=== PATIENT | female | born 1955 | race Caucasian/White ===

== ENCOUNTER 2020-07-18 09:48 | Inpatient (IN) ==
[2020-07-18] MEDS ORDERED: 0.9 % Sodium Chloride 1,000 ML IVC ONE (10:28)
[2020-07-18 11:08] LABS: Basophils % 0.2 %; Eosinophils # 0.4 K/mcL (0.0-0.6); Eosinophils % 4.2 %; Hematocrit 31.4 % (35.3-44.9); Hemoglobin 10.2 g/dL (11.5-15.4); Immature Granulocytes % 0.7 % (0-4); Lymphocytes # 1.4 K/mcL (0.6-4.6); Lymphocytes % 16.5 %; Mean Corpuscular HGB Conc 32.5 g/dL (31.6-35.5); Mean Corpuscular Hemoglobin 27.3 pg (28.0-33.3); Mean Corpuscular Volume 84.2 fL (83.0-100.0); Monocytes # 0.8 K/mcL (0.0-1.3); Monocytes % 9.3 %; Neutrophils # 5.9 K/mcL (1.6-8.9); Platelet Count 203 K/mcL (140-400); Red Blood Count 3.73 M/mcL (3.82-4.97); Red Cell Distribution Width 12.6 % (11.5-14.5); Segmented Neutrophils % 69.1 %; White Blood Count 8.6 K/mcL (4.3-11.1)
[2020-07-18 11:27] LABS: Alanine Aminotransferase 10 Units/L (7-52); Albumin 3.7 g/dL (3.5-5.7); Albumin/Globulin Ratio 0.9 (1.1-2.2); Alkaline Phosphatase 62 Units/L (34-104); Aspartate Amino Transferase 11 Units/L (13-39); BUN/Creatinine Ratio 8 (6-26); Bilirubin,Direct 0.1 mg/dL (0.0-0.2); Bilirubin,Indirect 0.5 mg/dL (0.0-1.0); Bilirubin,Total 0.6 mg/dL (0.3-1.0); Blood Urea Nitrogen 77 mg/dL (8-23); Calcium 9.1 mg/dL (8.6-10.3); Carbon Dioxide 17 mEq/L (23-29); Chloride 103 mEq/L (98-107); Globulin 3.9 g/dL (2.4-3.5); Glucose 90 mg/dL (70-105); Lipase 76 Units/L (11-82); Osmolality,Calculated 303 (280-300); Potassium 4.5 mEq/L (3.5-5.1); Sodium 135 mEq/L (136-145); Total Protein 7.6 g/dL (6.4-8.9); Troponin I < 0.03 ng/mL (< 0.04); eGFR For African Americans 5 (> 60); eGFR For Non-African Americans 4 (> 60)
[2020-07-18 13:51] LABS: Amorphous Sediment,Urine Few per hpf (None-Few); Bacteria,Urine Few per hpf (None-Few); Bilirubin,Urine Negative (Negative); Blood,Urine Large (Negative); Clarity,Urine Turbid (Clear); Color,Urine Colorless (Yellow); Glucose,Urine (UA) Normal (Normal); Ketones,Urine Negative (Negative); Leukocyte Esterase,Urine Negative (Negative); Mucus,Urine Few per lpf (None-Few); Nitrite,Urine Negative (Negative); Protein,Urine 200 mg/dL (Neg-Trace); RBC,Urine TNTC per hpf (0-3); Specific Gravity,Urine 1.009 (1.010-1.025); Squamous Epithelial Cell,Urine Few per hpf (None-Few); Urobilinogen,Urine Normal (Normal)
[2020-07-18 14:32] LABS: Adenovirus Not Detected (Not Detect); Bordetella Pertussis Not Detected (Not Detect); Chlamydophila pneumoniae Not Detected (Not Detect); Coronavirus 229E Not Detected (Not Detect); Coronavirus HKU1 Not Detected (Not Detect); Coronavirus NL63 Not Detected (Not Detect); Coronavirus OC43 Not Detected (Not Detect); Human Metapneumovirus Not Detected (Not Detect); Human Rhinovirus/Enterovirus Not Detected (Not Detect); Influenza A Subtype 2009 H1 Not Detected (Not Detect); Influenza B Not Detected (Not Detect); Mycoplasma pneumoniae Not Detected (Not Detect); Parainfluenza Virus 1 Not Detected (Not Detect); Parainfluenza Virus 2 Not Detected (Not Detect); Parainfluenza Virus 3 Not Detected (Not Detect); Parainfluenza Virus 4 Not Detected (Not Detect); Respiratory Syncytial Virus Not Detected (Not Detect); SARS-CoV-2 Not Detected (Not Detect)
[2020-07-18] MEDS ORDERED: Naloxone 0.4 MG/ML INJ IVP PRN (15:09)
[2020-07-18] MEDS ORDERED: Ondansetron 4 MG/2 ML VIAL IVP PRN (15:09)
[2020-07-18] MEDS: carvediloL 25 MG TABLET PO SCH (18:29)
[2020-07-18] MEDS: 0.9 % Sodium Chloride 1,000 ML IVC SCH (18:30)
[2020-07-18 22:59] LABS: Adenovirus F 40/41 PCR Not detected (Not detect); Astrovirus PCR Not detected (Not detect); C.difficile Toxin A/B Gene PCR Not detected (Not detect); Campylobacter by PCR Not detected (Not detect); Cryptosporidium by PCR Not detected (Not detect); Cyclospora cayetanensis PCR Not detected (Not detect); E. coli O157 by PCR Not detected (Not detect); Entamoeba histolytica PCR Not detected (Not detect); Enteroaggregative E.coli(EAEC) Not detected (Not detect); Enteropathogenic E.coli(EPEC) Not detected (Not detect); Enterotoxigenic E.coli (ETEC) Not detected (Not detect); Giardia lamblia PCR Not detected (Not detect); Norovirus GI/GII PCR Not detected (Not detect); Plesiomonas shigelloides PCR Not detected (Not detect); Rotavirus A PCR Not detected (Not detect); Salmonella PCR Not detected (Not detect); Sapovirus PCR Not detected (Not detect); Shig/EnteroinvasiveE coli EIEC Not detected (Not detect); Shigalike tox-prod E coli STEC Not detected (Not detect); Vibrio PCR Not detected (Not detect); Vibrio cholerae PCR Not detected (Not detect); Yersinia enterocolitica PCR Not detected (Not detect)
[2020-07-19 01:00] LABS: Protein/Creatinine Ratio,Urine 2.19 mg/mg (0.00-0.20)
[2020-07-19 03:10] LABS: Basophils % 0.2 %; Eosinophils # 0.4 K/mcL (0.0-0.6); Eosinophils % 5.4 %; Hematocrit 26.3 % (35.3-44.9); Immature Granulocytes % 0.6 % (0-4); Lymphocytes # 1.3 K/mcL (0.6-4.6); Lymphocytes % 15.8 %; Mean Corpuscular HGB Conc 31.9 g/dL (31.6-35.5); Mean Corpuscular Hemoglobin 27.5 pg (28.0-33.3); Mean Corpuscular Volume 86.2 fL (83.0-100.0); Mean Platelet Volume 9.5 fL (9.4-12.4); Monocytes # 0.9 K/mcL (0.0-1.3); Monocytes % 10.6 %; Neutrophils # 5.5 K/mcL (1.6-8.9); Platelet Count 189 K/mcL (140-400); Red Blood Count 3.05 M/mcL (3.82-4.97); Red Cell Distribution Width 12.8 % (11.5-14.5); Segmented Neutrophils % 67.4 %; White Blood Count 8.2 K/mcL (4.3-11.1)
[2020-07-19 03:11] LABS: Hemoglobin 8.4 g/dL (11.5-15.4)
[2020-07-19 03:29] LABS: Calcium 8.1 mg/dL (8.6-10.3); Magnesium 1.9 mg/dL (1.6-2.6); Potassium 5.1 mEq/L (3.5-5.1)
[2020-07-19] MEDS: 0.9 % Sodium Chloride 1,000 ML IVC SCH (04:15)
[2020-07-19 08:19] LABS: Hematocrit 27.2 % (35.3-44.9); Hemoglobin 8.6 g/dL (11.5-15.4)
[2020-07-19] MEDS: Cholecalciferol (D-3) 1,000 UNIT (25MCG) TABLET PO SCH (09:15)
[2020-07-19] MEDS: carvediloL 25 MG TABLET PO SCH ×2 (09:15→16:05)
[2020-07-19] MEDS: amLODIPine 5 MG TABLET PO SCH (09:15)
[2020-07-19] MEDS: Sodium Bicarbonate 75 MEQ in 0.45 % Sodium Chloride 1,000 ML IVC SCH (11:38)
[2020-07-19 12:19] LABS: Complement C3 155 mg/dL (87-200)
[2020-07-19] MEDS: Ondansetron 4 MG/2 ML VIAL IVP PRN (12:20)
[2020-07-20 01:48] LABS: Eosinophils % 5.9 %; Hematocrit 23.9 % (35.3-44.9); Hemoglobin 7.5 g/dL (11.5-15.4); Immature Granulocytes % 0.7 % (0-4); Lymphocytes % 17.8 %; Mean Corpuscular HGB Conc 31.4 g/dL (31.6-35.5); Mean Corpuscular Hemoglobin 26.9 pg (28.0-33.3); Mean Corpuscular Volume 85.7 fL (83.0-100.0); Mean Platelet Volume 9.9 fL (9.4-12.4); Monocytes % 9.6 %; Platelet Count 202 K/mcL (140-400); Red Blood Count 2.79 M/mcL (3.82-4.97); Red Cell Distribution Width 12.6 % (11.5-14.5); Segmented Neutrophils % 65.8 %; White Blood Count 8.8 K/mcL (4.3-11.1)
[2020-07-20 01:49] LABS: Basophils % 0.2 %; Eosinophils # 0.5 K/mcL (0.0-0.6); Lymphocytes # 1.6 K/mcL (0.6-4.6); Monocytes # 0.8 K/mcL (0.0-1.3); Neutrophils # 5.8 K/mcL (1.6-8.9)
[2020-07-20 02:15] LABS: Calcium 7.8 mg/dL (8.6-10.3); Magnesium 1.8 mg/dL (1.6-2.6); Phosphorous 5.2 mg/dL (2.7-4.5); Potassium 5.3 mEq/L (3.5-5.1)
[2020-07-20 03:06] LABS: Hepatitis B Surface Antibody < 3.10 mIU/mL
[2020-07-20 03:17] LABS: Hepatitis B Surface Antigen Nonreactive (Nonreactive)
[2020-07-20 03:45] LABS: Hepatitis B Core IgM Nonreactive (Nonreactive)
[2020-07-20] MEDS: Sodium Bicarbonate 75 MEQ in 0.45 % Sodium Chloride 1,000 ML IVC SCH (05:25)
[2020-07-20] MEDS: amLODIPine 5 MG TABLET PO SCH (07:56)
[2020-07-20] MEDS: Cholecalciferol (D-3) 1,000 UNIT (25MCG) TABLET PO SCH (07:56)
[2020-07-20] MEDS: carvediloL 25 MG TABLET PO SCH ×2 (07:56→16:31)
[2020-07-20] MEDS ORDERED: Ferumoxytol 510 MG in 0.9 % Sodium Chloride 100 ML IVPB ONE (11:18)
[2020-07-20] MEDS ORDERED: 0.9 % Sodium Chloride 1,000 ML IVC SCH (11:30)
[2020-07-20 12:57] LABS: Hematocrit 24.5 % (35.3-44.9)
[2020-07-20 13:17] LABS: Calcium 7.8 mg/dL (8.6-10.3); Potassium 4.8 mEq/L (3.5-5.1)
[2020-07-20] MEDS ORDERED: SODIUM CHLORIDE/NAHCO3/KCL/PEG 4,000 ML SOLN.RECON PO ONE (17:00)
[2020-07-21 06:34] LABS: Basophils % 0.3 %; Eosinophils # 0.4 K/mcL (0.0-0.6); Eosinophils % 5.3 %; Hematocrit 22.5 % (35.3-44.9); Hemoglobin 7.3 g/dL (11.5-15.4); Immature Granulocytes % 1.2 % (0-4); Lymphocytes # 1.4 K/mcL (0.6-4.6); Lymphocytes % 18.4 %; Mean Corpuscular HGB Conc 32.4 g/dL (31.6-35.5); Mean Corpuscular Hemoglobin 27.2 pg (28.0-33.3); Monocytes # 0.7 K/mcL (0.0-1.3); Monocytes % 9.9 %; Neutrophils # 4.9 K/mcL (1.6-8.9); Platelet Count 221 K/mcL (140-400); Red Blood Count 2.68 M/mcL (3.82-4.97); Red Cell Distribution Width 12.6 % (11.5-14.5); Segmented Neutrophils % 64.9 %; White Blood Count 7.5 K/mcL (4.3-11.1)
[2020-07-21 06:51] LABS: Phosphorous 5.9 mg/dL (2.7-4.5)
[2020-07-21 07:00] LABS: Calcium 7.6 mg/dL (8.6-10.3)
[2020-07-21] MEDS ORDERED: 0.9 % Sodium Chloride 250 ML IVC PRN (07:04)
[2020-07-21] MEDS ORDERED: 0.9 % Sodium Chloride 1,000 ML PRIME SCH (07:15)
[2020-07-21] MEDS ORDERED: Lidocaine/EPI 1:100k 1% 50 ML VIAL ONE (08:17)
[2020-07-21] MEDS ORDERED: Heparin 1,000 UNITS/500 mL 500 ML ONE (08:17)
[2020-07-21] MEDS: Ondansetron 4 MG/2 ML VIAL IVP PRN (08:20)
[2020-07-21] MEDS: Cholecalciferol (D-3) 1,000 UNIT (25MCG) TABLET PO SCH ×2 (08:21→12:08)
[2020-07-21 08:26] LABS: INR 1.1
[2020-07-21] MEDS ORDERED: *HR* Heparin 5,000 UNIT/ML VIAL ONE (09:01)
[2020-07-21] MEDS ORDERED: *HR* Heparin 10,000 UNIT/10 ML VIAL IV PRN (10:53)
[2020-07-21] MEDS: amLODIPine 5 MG TABLET PO SCH (12:08)
[2020-07-21] MEDS: carvediloL 25 MG TABLET PO SCH ×2 (12:08→16:50)
[2020-07-21] MEDS ORDERED: Lidocaine -MPF 2% 2 ML VIAL ONE (13:03)
[2020-07-22 03:37] LABS: Basophils % 0.3 %; Eosinophils # 0.3 K/mcL (0.0-0.6); Eosinophils % 4.1 %; Hematocrit 21.7 % (35.3-44.9); Hemoglobin 7.2 g/dL (11.5-15.4); Lymphocytes # 1.2 K/mcL (0.6-4.6); Lymphocytes % 15.6 %; Mean Corpuscular HGB Conc 33.2 g/dL (31.6-35.5); Mean Corpuscular Hemoglobin 27.9 pg (28.0-33.3); Mean Corpuscular Volume 84.1 fL (83.0-100.0); Mean Platelet Volume 9.3 fL (9.4-12.4); Monocytes # 0.8 K/mcL (0.0-1.3); Monocytes % 9.7 %; Neutrophils # 5.5 K/mcL (1.6-8.9); Platelet Count 270 K/mcL (140-400); Red Blood Count 2.58 M/mcL (3.82-4.97); Red Cell Distribution Width 12.6 % (11.5-14.5); Segmented Neutrophils % 69.3 %; White Blood Count 7.9 K/mcL (4.3-11.1)
[2020-07-22 04:00] LABS: Calcium 7.6 mg/dL (8.6-10.3); Potassium 4.5 mEq/L (3.5-5.1)
[2020-07-22] MEDS ORDERED: 0.9 % Sodium Chloride 250 ML IVC PRN (07:10)
[2020-07-22] MEDS: carvediloL 25 MG TABLET PO SCH ×2 (07:50→16:21)
[2020-07-22] MEDS: Cholecalciferol (D-3) 1,000 UNIT (25MCG) TABLET PO SCH (07:50)
[2020-07-22] MEDS ORDERED: *HR* Heparin 10,000 UNIT/10 ML VIAL IV PRN (09:36)
[2020-07-22] MEDS: amLODIPine 5 MG TABLET PO SCH (11:37)
[2020-07-22 13:34] LABS: ANA IgG by ELISA NONE DETECTED (None Detected)
[2020-07-22 13:41] LABS: Serine Protease-3 Antibody 149 AU/mL (0-19)
[2020-07-22 21:54] LABS: Beta Globulin (PEP) 0.79 g/dL (0.48-1.10)
[2020-07-23 04:12] LABS: Basophils % 0.2 %; Eosinophils # 0.3 K/mcL (0.0-0.6); Eosinophils % 3.2 %; Hematocrit 20.5 % (35.3-44.9); Hemoglobin 6.7 g/dL (11.5-15.4); Immature Granulocytes % 1.5 % (0-4); Lymphocytes # 1.2 K/mcL (0.6-4.6); Lymphocytes % 12.5 %; Mean Corpuscular HGB Conc 32.7 g/dL (31.6-35.5); Mean Corpuscular Hemoglobin 27.7 pg (28.0-33.3); Mean Corpuscular Volume 84.7 fL (83.0-100.0); Mean Platelet Volume 9.4 fL (9.4-12.4); Monocytes # 0.9 K/mcL (0.0-1.3); Monocytes % 9.4 %; Neutrophils # 6.8 K/mcL (1.6-8.9); Platelet Count 297 K/mcL (140-400); Red Blood Count 2.42 M/mcL (3.82-4.97); Red Cell Distribution Width 12.5 % (11.5-14.5); Segmented Neutrophils % 73.2 %; White Blood Count 9.3 K/mcL (4.3-11.1)
[2020-07-23 04:31] LABS: Calcium 7.4 mg/dL (8.6-10.3); Potassium 3.7 mEq/L (3.5-5.1)
[2020-07-23] MEDS ORDERED: 0.9 % Sodium Chloride 250 ML IVC SCH (06:00)
[2020-07-23] MEDS ORDERED: 0.9 % Sodium Chloride 250 ML IVC PRN (07:12)
[2020-07-23] MEDS: carvediloL 25 MG TABLET PO SCH ×2 (07:42→18:03)
[2020-07-23] MEDS: Cholecalciferol (D-3) 1,000 UNIT (25MCG) TABLET PO SCH (07:42)
[2020-07-23] MEDS: Piperacillin/Tazobactam 3.375 GM in 0.9 % Sodium Chloride Mini Bag 100 ML IVPB SCH ×2 (08:15→18:05)
[2020-07-23 08:45] LABS: INR 1.2; Prothrombin Time 13.7 Seconds (9.4-12.1)
[2020-07-23] MEDS ORDERED: Ondansetron 4 MG/2 ML VIAL IVP PRN (08:52)
[2020-07-23] MEDS ORDERED: *HR* FentaNYL (PF) 100 MCG/2 ML VIAL IVP PRN (08:52)
[2020-07-23] MEDS ORDERED: Lidocaine -MPF 4% 5 ML AMPUL ONE ×2 (10:40)
[2020-07-23] MEDS ORDERED: *HR* Succinylcholine 200 MG/10 ML VIAL IVP ONE (10:40)
[2020-07-23] MEDS ORDERED: Ondansetron 4 MG/2 ML VIAL ONE (10:40)
[2020-07-23] MEDS ORDERED: Dexamethasone 4 MG/ML VIAL ONE (10:40)
[2020-07-23] MEDS ORDERED: Lidocaine -MPF 2% 2 ML VIAL ONE (10:40)
[2020-07-23] MEDS ORDERED: *HR* FentaNYL (PF) 100 MCG/2 ML VIAL ONE (10:41)
[2020-07-23] MEDS ORDERED: *HR* Propofol 200 MG/20 ML VIAL IVP ONE (10:42)
[2020-07-23] MEDS: 0.9 % Sodium Chloride 500 ML IVC SCH (11:30)
[2020-07-23 12:15] LABS: IFE Reflexed NOT DONE
[2020-07-23] MEDS ORDERED: *HR* Heparin 10,000 UNIT/10 ML VIAL IV PRN (12:23)
[2020-07-23] MEDS: amLODIPine 5 MG TABLET PO SCH (12:38)
[2020-07-23] MEDS ORDERED: Artificial Tears SOLN 15 ML BOTTLE BOTH EYES PRN (13:10)
[2020-07-23] MEDS: FentaNYL (PF) 1,000 MCG/100 ML IV.SOLN IVC SCH (14:25)
[2020-07-23 15:56] LABS: Hematocrit 26.4 % (35.3-44.9)
[2020-07-23 16:10] LABS: Hemoglobin 8.9 g/dL (11.5-15.4)
[2020-07-23 16:30] LABS: Hepatitis B Surface Antigen Nonreactive (Nonreactive)
[2020-07-23] MEDS: Artificial Tears SOLN 15 ML BOTTLE BOTH EYES SCH ×3 (16:33→23:21)
[2020-07-23] MEDS: Pantoprazole 40 MG VIAL IVP SCH (16:33)
[2020-07-23 16:58] LABS: Hepatitis C Virus Antibody Nonreactive (Nonreactive)
[2020-07-23 16:59] LABS: Hepatitis B Core IgM Nonreactive (Nonreactive)
[2020-07-23 17:01] LABS: Hepatitis A Antibody IgM Nonreactive (Nonreactive)
[2020-07-23 17:23] LABS: Appearance of Body Fluid Hazy (Clear)
[2020-07-23 17:24] LABS: Volume of Body Fluid 27 mL
[2020-07-23] MEDS: Chlorhexidine Rinse 15 ML MOUTHWASH MM SCH (19:50)
[2020-07-24] MEDS: 0.9 % Sodium Chloride 500 ML IVC SCH (04:36)
[2020-07-24] MEDS: Artificial Tears SOLN 15 ML BOTTLE BOTH EYES SCH ×2 (04:36→09:41)
[2020-07-24 04:43] LABS: Basophils % 0.1 %; Hematocrit 24.8 % (35.3-44.9); Hemoglobin 8.4 g/dL (11.5-15.4); Immature Granulocytes % 1.4 % (0-4); Lymphocytes # 0.9 K/mcL (0.6-4.6); Lymphocytes % 8.5 %; Mean Corpuscular HGB Conc 33.9 g/dL (31.6-35.5); Mean Corpuscular Hemoglobin 28.5 pg (28.0-33.3); Mean Corpuscular Volume 84.1 fL (83.0-100.0); Mean Platelet Volume 9.2 fL (9.4-12.4); Monocytes # 0.3 K/mcL (0.0-1.3); Monocytes % 2.3 %; Neutrophils # 9.6 K/mcL (1.6-8.9); Platelet Count 295 K/mcL (140-400); Red Blood Count 2.95 M/mcL (3.82-4.97); Segmented Neutrophils % 87.7 %
[2020-07-24 04:53] LABS: INR 1.3; Prothrombin Time 15.1 Seconds (9.4-12.1)
[2020-07-24 04:54] LABS: ABG Base Excess 4 mEq/L (-2 to 3); ABG HCO3 28 mEq/L (21-27); ABG Oxygen Saturation 96 % (95-98); ABG PCO2 40 mmHg (35-45); ABG PH 7.45 pH Units (7.32-7.45); ABG PO2 77 mmHg (85-104); ABG TCO2 29 mEq/L (20-26); Blood Gas VT 400 cc
[2020-07-24 04:56] LABS: Albumin 2.7 g/dL (3.5-5.7); Bilirubin,Total 0.8 mg/dL (0.3-1.0); Calcium 7.5 mg/dL (8.6-10.3); Globulin 2.8 g/dL (2.4-3.5); Potassium 4.4 mEq/L (3.5-5.1); Total Protein 5.5 g/dL (6.4-8.9)
[2020-07-24] MEDS: Piperacillin/Tazobactam 3.375 GM in 0.9 % Sodium Chloride Mini Bag 100 ML IVPB SCH (05:01)
[2020-07-24] MEDS ORDERED: Lidocaine -MPF 2% 5 ML VIAL ONE (08:25)
[2020-07-24] MEDS ORDERED: *HR* Midazolam HCl 2 MG/2 ML VIAL IVP ONE (08:37)
[2020-07-24] MEDS ORDERED: Furosemide 80 MG in 0.9 % Sodium Chloride 50 ML IVPB ONE (09:30)
[2020-07-24 09:39] VITALS: BP 117/67
[2020-07-24] MEDS: carvediloL 25 MG TABLET PO SCH (09:41)
[2020-07-24] MEDS: *HR* Midazolam HCl 5 MG/5 ML VIAL IVP ONE ×2 (09:42)
[2020-07-24] MEDS: Chlorhexidine Rinse 15 ML MOUTHWASH MM SCH (09:44)
[2020-07-24] MEDS: Pantoprazole 40 MG VIAL IVP SCH (09:44)
[2020-07-24] MEDS: amLODIPine 5 MG TABLET PO SCH (09:44)
[2020-07-24] MEDS: Cholecalciferol (D-3) 1,000 UNIT (25MCG) TABLET PO SCH (09:45)
[2020-07-24] MEDS: FentaNYL (PF) 1,000 MCG/100 ML IV.SOLN IVC SCH (09:58)
[2020-07-26 23:44] LABS: HSV Source RML BAL
[2020-07-28 10:39] LABS: Antiphospholipid IgG High Spec 5 GPL (0-14); Antiphospholipid IgM High Spec 7 MPL (0-14)
== END 2020-07-24 12:00 | disposition short-term general hospital (02) | DRG 542 ==
LOC: EMEROOARM 09:48 → 2ANU 17:26 → SUATTDRO 17:26 → 2ANU 18:03 → ICNU 07-23 11:49
PROVIDERS: ADMIT General Practice; ATTEND Internal Medicine
PROC: ENDOEBX (2020-07-21 13:00)

== ENCOUNTER 2021-03-31 04:36 | Inpatient (IN) ==
[2021-03-31] MEDS ORDERED: Ipratropium/Albuterol Neb 3 ML IH ONE (05:01)
[2021-03-31 05:50] LABS: Basophils % 0.2 %; Hemoglobin 11.8 g/dL (11.5-15.4)
[2021-03-31 05:52] LABS: Calcium 9.2 mg/dL (8.6-10.3); Eosinophils % 2.8 %; Immature Granulocytes % 4.5 % (0-4); Immature Platelets 4.7 % (1.1-6.1); Lymphocytes # 1.5 K/mcL (0.6-4.6); Lymphocytes % 17.3 %; Mean Corpuscular HGB Conc 31.9 g/dL (31.6-35.5); Mean Corpuscular Hemoglobin 29.9 pg (28.0-33.3); Mean Corpuscular Volume 93.9 fL (83.0-100.0); Mean Platelet Volume 10.6 fL (9.4-12.4); Monocytes % 7.2 %; Platelet Count 272 K/mcL (140-400); Potassium 5.3 mEq/L (3.5-5.1); Red Blood Count 3.94 M/mcL (3.82-4.97); Red Cell Distribution Width 13.2 % (11.5-14.5); Troponin I 0.03 ng/mL (< 0.04); White Blood Count 8.7 K/mcL (4.3-11.1)
[2021-03-31 05:53] LABS: Eosinophils # 0.2 K/mcL (0.0-0.6); Monocytes # 0.6 K/mcL (0.0-1.3); Neutrophils # 5.9 K/mcL (1.6-8.9)
[2021-03-31] MEDS ORDERED: Furosemide 40 MG/4 ML VIAL IVP ONE (06:10)
[2021-03-31 06:59] LABS: VBG HCO3 19 mEq/L (21-27); VBG PCO2 33 mmHg (41-51); VBG PH 7.38 pH Units (7.32-7.42); VBG PO2 85 mmHg (25-50)
[2021-03-31] MEDS ORDERED: Ondansetron 4 MG/2 ML VIAL IVP ONE (07:26)
[2021-03-31] MEDS ORDERED: Ondansetron 4 MG/2 ML VIAL ONE (07:30)
[2021-03-31 07:35] LABS: Influenza A PCR Negative (Negative); Influenza B PCR Negative (Negative); Resp. Syncytial Virus PCR Negative (Negative); SARS-CoV-2 by PCR (In House) Negative (Negative)
[2021-03-31] MEDS ORDERED: Acetaminophen 325 MG TABLET PO PRN (08:38)
[2021-03-31] MEDS ORDERED: 0.9 % Sodium Chloride 250 ML IVC PRN (08:49)
[2021-03-31] MEDS ORDERED: 0.9 % Sodium Chloride 1,000 ML PRIME SCH (09:00)
[2021-03-31] MEDS: NIFEdipine XL (24 HR) 60 MG TAB.ER.24 PO SCH ×2 (10:40→10:41)
[2021-03-31 11:16] LABS: Hepatitis B Surface Antibody < 3.10 mIU/mL
[2021-03-31 11:27] LABS: Hepatitis B Surface Antigen Nonreactive (Nonreactive)
[2021-03-31] MEDS ORDERED: carvediloL 25 MG TABLET PO SCH (13:30)
[2021-03-31] MEDS ORDERED: Perflutren Lipid Microsphere 1.3 ML in 0.9 % Sodium Chloride 8.7 ML IVP PRN (13:52)
[2021-03-31] MEDS ORDERED: NIFEdipine XL (24 HR) 30 MG TAB.ER.24 PO ONE (14:09)
[2021-03-31] MEDS: Ondansetron 4 MG/2 ML VIAL IVP PRN (14:39)
[2021-03-31] MEDS: carvediloL 25 MG TABLET PO SCH (18:00)
[2021-03-31] MEDS: Sucralfate 1 GM TABLET PO SCH ×2 (18:00→22:06)
[2021-04-01 02:54] LABS: Hematocrit 32.4 % (35.3-44.9); Hemoglobin 10.5 g/dL (11.5-15.4); Mean Corpuscular HGB Conc 32.4 g/dL (31.6-35.5); Mean Corpuscular Hemoglobin 30.2 pg (28.0-33.3); Mean Corpuscular Volume 93.1 fL (83.0-100.0); Mean Platelet Volume 9.4 fL (9.4-12.4); Platelet Count 226 K/mcL (140-400); Red Blood Count 3.48 M/mcL (3.82-4.97); Red Cell Distribution Width 13.2 % (11.5-14.5); White Blood Count 5.6 K/mcL (4.3-11.1)
[2021-04-01 03:14] LABS: Calcium 8.6 mg/dL (8.6-10.3); Potassium 4.6 mEq/L (3.5-5.1)
[2021-04-01] MEDS ORDERED: NIFEdipine XL (24 HR) 30 MG TAB.ER.24 PO SCH (09:00)
[2021-04-01] MEDS ORDERED: Sulfamethoxazole/Trimeth SS 1 TAB PO SCH (09:00)
[2021-04-01] MEDS: Furosemide 40 MG TABLET PO SCH (09:21)
[2021-04-01] MEDS: Sucralfate 1 GM TABLET PO SCH ×4 (09:21→21:01)
[2021-04-01] MEDS: carvediloL 25 MG TABLET PO SCH ×2 (09:22→17:09)
[2021-04-01] MEDS: predniSONE 5 MG TABLET PO SCH (09:22)
[2021-04-01] MEDS: NIFEdipine XL (24 HR) 30 MG TAB.ER.24 PO SCH (11:22)
[2021-04-01] MEDS: *HR* Heparin 5,000 UNIT/ML VIAL SQ SCH (17:04)
[2021-04-02 02:36] LABS: Basophils % 0.2 %; Eosinophils # 0.1 K/mcL (0.0-0.6); Eosinophils % 2.4 %; Hematocrit 30.1 % (35.3-44.9); Hemoglobin 9.7 g/dL (11.5-15.4); Immature Granulocytes % 1.5 % (0-4); Lymphocytes # 1.1 K/mcL (0.6-4.6); Lymphocytes % 24.8 %; Mean Corpuscular HGB Conc 32.2 g/dL (31.6-35.5); Mean Corpuscular Hemoglobin 30.1 pg (28.0-33.3); Mean Corpuscular Volume 93.5 fL (83.0-100.0); Mean Platelet Volume 9.8 fL (9.4-12.4); Monocytes # 0.7 K/mcL (0.0-1.3); Monocytes % 14.6 %; Neutrophils # 2.6 K/mcL (1.6-8.9); Platelet Count 222 K/mcL (140-400); Red Blood Count 3.22 M/mcL (3.82-4.97); Red Cell Distribution Width 12.9 % (11.5-14.5); Segmented Neutrophils % 56.5 %; White Blood Count 4.6 K/mcL (4.3-11.1)
[2021-04-02 02:49] LABS: Calcium 8.2 mg/dL (8.6-10.3); Potassium 4.5 mEq/L (3.5-5.1)
[2021-04-02] MEDS: *HR* Heparin 5,000 UNIT/ML VIAL SQ SCH ×2 (05:31→17:25)
[2021-04-02] MEDS ORDERED: 0.9 % Sodium Chloride 250 ML IVC PRN (08:31)
[2021-04-02] MEDS ORDERED: 0.9 % Sodium Chloride 1,000 ML PRIME SCH (08:45)
[2021-04-02] MEDS ORDERED: NIFEdipine XL (24 HR) 30 MG TAB.ER.24 PO SCH (09:00)
[2021-04-02] MEDS: Ondansetron 4 MG/2 ML VIAL IVP PRN (11:31)
[2021-04-02] MEDS: Sucralfate 1 GM TABLET PO SCH ×3 (15:10→21:06)
[2021-04-02] MEDS: carvediloL 25 MG TABLET PO SCH ×2 (15:11→17:24)
[2021-04-02] MEDS: predniSONE 5 MG TABLET PO SCH (15:24)
[2021-04-02] MEDS: NIFEdipine XL (24 HR) 30 MG TAB.ER.24 PO SCH (15:24)
[2021-04-02] MEDS ORDERED: Sulfamethoxazole/Trimeth SS 1 TAB PO SCH (16:00)
[2021-04-03 02:22] LABS: Basophils % 0.6 %; Eosinophils # 0.1 K/mcL (0.0-0.6); Eosinophils % 2.8 %; Hemoglobin 10.1 g/dL (11.5-15.4); Immature Granulocytes % 1.9 % (0-4); Lymphocytes # 0.9 K/mcL (0.6-4.6); Lymphocytes % 25.7 %; Mean Corpuscular HGB Conc 31.6 g/dL (31.6-35.5); Mean Corpuscular Hemoglobin 29.6 pg (28.0-33.3); Mean Corpuscular Volume 93.8 fL (83.0-100.0); Mean Platelet Volume 9.5 fL (9.4-12.4); Monocytes # 0.5 K/mcL (0.0-1.3); Monocytes % 13.3 %; Platelet Count 214 K/mcL (140-400); Red Blood Count 3.41 M/mcL (3.82-4.97); Red Cell Distribution Width 12.9 % (11.5-14.5); Segmented Neutrophils % 55.7 %; White Blood Count 3.6 K/mcL (4.3-11.1)
[2021-04-03 02:41] LABS: Potassium 4.6 mEq/L (3.5-5.1)
[2021-04-03] MEDS: *HR* Heparin 5,000 UNIT/ML VIAL SQ SCH ×2 (06:14→16:20)
[2021-04-03] MEDS: carvediloL 25 MG TABLET PO SCH ×2 (08:08→16:35)
[2021-04-03] MEDS: Sucralfate 1 GM TABLET PO SCH ×3 (08:08→16:35)
[2021-04-03] MEDS: predniSONE 5 MG TABLET PO SCH (08:09)
[2021-04-03] MEDS ORDERED: amLODIPine 5 MG TABLET PO SCH (09:00)
[2021-04-03] MEDS: Furosemide 40 MG TABLET PO SCH (10:15)
[2021-04-03] MEDS ORDERED: methylPREDNISolone 125 MG/2 ML VIAL IVP ONE (10:28)
[2021-04-03] MEDS ORDERED: Heparin 1,000 UNITS/500 mL 500 ML ONE (10:41)
[2021-04-03] MEDS ORDERED: Nitroglycerin 1,000 MCG/5 ML VIAL IV ONE (10:41)
[2021-04-03] MEDS ORDERED: 0.9 % Sodium Chloride 2,000 ML ONE (10:41)
[2021-04-03] MEDS ORDERED: *HR* Heparin 10,000 UNIT/10 ML VIAL ONE (10:41)
[2021-04-03] MEDS ORDERED: ISOVUE-370 200 ML INFUS..BTL ONE (10:41)
[2021-04-03] MEDS ORDERED: *HR* Midazolam HCl 2 MG/2 ML VIAL ONE (11:03)
[2021-04-03] MEDS ORDERED: *HR* FentaNYL (PF) 100 MCG/2 ML VIAL ONE (11:03)
[2021-04-03] MEDS ORDERED: amLODIPine 5 MG TABLET PO ONE (12:14)
[2021-04-03] MEDS ORDERED: lisinopriL 5 MG TABLET PO SCH (13:15)
[2021-04-03 15:59] VITALS: TEMP 98.4
[2021-04-03 17:34] VITALS: BP 151/80; PULSE 77; O2SAT 96
[2021-04-04] MEDS ORDERED: amLODIPine 5 MG TABLET PO SCH (09:00)
== END 2021-04-03 18:34 | disposition home or self-care (01) | DRG 640 ==
LOC: 2ANU 04:36 → EMEROOARM 04:36 → SUATTDRO 06:40 → 2ANU 09:11 → SUATTDRO 11:17
PROVIDERS: ADMIT Student in an Organized Health Care Education/Training Program; ATTEND Internal Medicine

== ENCOUNTER 2021-06-01 08:19 | Inpatient (IN) ==
[2021-06-01 09:51] LABS: INR 1.1; Prothrombin Time 12.7 Seconds (9.4-12.1)
[2021-06-01 09:54] LABS: Activated Partial Thrombo Time 31.9 Seconds (26.0-36.0)
[2021-06-01 10:12] LABS: Albumin/Globulin Ratio 1.3 (1.1-2.2); Bilirubin,Total 0.6 mg/dL (0.3-1.0); Calcium 8.3 mg/dL (8.6-10.3); Globulin 2.4 g/dL (2.4-3.5); Potassium 4.6 mEq/L (3.5-5.1); Total Protein 5.4 g/dL (6.4-8.9)
[2021-06-01 10:15] LABS: Troponin I 0.05 ng/mL (< 0.04)
[2021-06-01 10:22] LABS: Basophils % 0.2 %; Eosinophils # 0.1 K/mcL (0.0-0.6); Eosinophils % 2.7 %; Hematocrit 34.7 % (35.3-44.9); Immature Granulocytes % 1.6 % (0-4); Immature Platelets 3.4 % (1.1-6.1); Lymphocytes # 0.5 K/mcL (0.6-4.6); Lymphocytes % 10.5 %; Mean Corpuscular Hemoglobin 29.5 pg (28.0-33.3); Mean Platelet Volume 9.7 fL (9.4-12.4); Monocytes # 0.1 K/mcL (0.0-1.3); Monocytes % 1.8 %; Neutrophils # 3.7 K/mcL (1.6-8.9); Platelet Count 284 K/mcL (140-400); Red Blood Count 3.73 M/mcL (3.82-4.97); Red Cell Distribution Width 14.2 % (11.5-14.5); Segmented Neutrophils % 83.2 %; White Blood Count 4.5 K/mcL (4.3-11.1)
[2021-06-01 10:23] LABS: Mean Corpuscular HGB Conc 31.7 g/dL (31.6-35.5)
[2021-06-01 10:38] LABS: Platelet Estimate Normal (Normal)
[2021-06-01 14:05] LABS: Influenza A PCR Negative (Negative); Influenza B PCR Negative (Negative); Resp. Syncytial Virus PCR Negative (Negative)
[2021-06-01] MEDS ORDERED: Cefepime HCl 1,000 MG in 0.9 % Sodium Chloride Mini Bag 100 ML IVPB STA (14:29)
[2021-06-01] MEDS ORDERED: Dexamethasone Sodium Phos/PF 10 MG/ML VIAL IVP ONE (14:31)
[2021-06-01 14:36] LABS: SARS-CoV-2 by PCR (In House) Positive (Negative)
[2021-06-01] MEDS ORDERED: Ondansetron 4 MG/2 ML VIAL IVP PRN (14:39)
[2021-06-01] MEDS ORDERED: Naloxone 0.4 MG/ML INJ IVP PRN (14:39)
[2021-06-01] MEDS ORDERED: Furosemide 40 MG TABLET PO SCH (14:45)
[2021-06-01] MEDS ORDERED: Azithromycin 500 MG in 0.9 % Sodium Chloride 250 ML IVPB SCH (15:00)
[2021-06-01 15:08] LABS: Troponin I 0.04 ng/mL (< 0.04)
[2021-06-01] MEDS ORDERED: GuaiFENesin Liq 200 MG/10 ML UDC PO ONE (15:08)
[2021-06-01] MEDS ORDERED: GuaiFENesin Liq 200 MG/10 ML UDC PO PRN (15:08)
[2021-06-01] MEDS: carvediloL 25 MG TABLET PO SCH (21:33)
[2021-06-02 02:36] LABS: Calcium 8.1 mg/dL (8.6-10.3); Magnesium 1.9 mg/dL (1.6-2.6); Phosphorous 7.1 mg/dL (2.7-4.5)
[2021-06-02 03:00] LABS: Basophils % 0.2 %; Hematocrit 32.6 % (35.3-44.9); Hemoglobin 10.5 g/dL (11.5-15.4); Immature Granulocytes % 1.7 % (0-4); Lymphocytes # 0.5 K/mcL (0.6-4.6); Lymphocytes % 11.4 %; Mean Corpuscular HGB Conc 32.2 g/dL (31.6-35.5); Mean Corpuscular Hemoglobin 29.6 pg (28.0-33.3); Mean Platelet Volume 9.7 fL (9.4-12.4); Monocytes # 0.1 K/mcL (0.0-1.3); Monocytes % 1.5 %; Neutrophils # 3.5 K/mcL (1.6-8.9); Platelet Count 278 K/mcL (140-400); Red Blood Count 3.55 M/mcL (3.82-4.97); Red Cell Distribution Width 14.5 % (11.5-14.5); Segmented Neutrophils % 85.2 %; White Blood Count 4.1 K/mcL (4.3-11.1)
[2021-06-02 03:04] LABS: Mean Corpuscular Volume 91.8 fL (83.0-100.0)
[2021-06-02 06:55] VITALS: O2SAT 94
[2021-06-02] MEDS ORDERED: 0.9 % Sodium Chloride 250 ML IVC PRN (07:57)
[2021-06-02] MEDS ORDERED: *HR* Heparin 10,000 UNIT/10 ML VIAL IV PRN (07:57)
[2021-06-02] MEDS ORDERED: 0.9 % Sodium Chloride 1,000 ML PRIME SCH (08:00)
[2021-06-02] MEDS ORDERED: cefTRIAXone 1,000 MG in 0.9 % Sodium Chloride Mini Bag 100 ML IVP SCH (09:00)
[2021-06-02 09:02] LABS: Hepatitis B Surface Antibody < 3.10 mIU/mL
[2021-06-02 09:13] LABS: Hepatitis B Surface Antigen Nonreactive (Nonreactive)
[2021-06-02] MEDS: carvediloL 25 MG TABLET PO SCH (09:23)
[2021-06-02 14:18] VITALS: PULSE 68
[2021-06-02 14:57] VITALS: BP 139/63
[2021-06-02 15:01] VITALS: TEMP 97.7
== END 2021-06-02 16:45 | disposition home or self-care (01) | DRG 177 ==
LOC: 3NENU 08:19 → EMEROOARM 08:19 → 3NENU 16:10 → SUATTDRO 18:43
PROVIDERS: ADMIT Student in an Organized Health Care Education/Training Program; ATTEND Internal Medicine

== ENCOUNTER 2021-06-23 04:38 | Inpatient (IN) ==
[2021-06-23 07:24] LABS: Basophils % 0.4 %; Eosinophils # 0.2 K/mcL (0.0-0.6); Eosinophils % 2.6 %; Hematocrit 27.4 % (35.3-44.9); Hemoglobin 8.2 g/dL (11.5-15.4); Lymphocytes # 1.1 K/mcL (0.6-4.6); Mean Corpuscular HGB Conc 29.9 g/dL (31.6-35.5); Mean Corpuscular Hemoglobin 28.8 pg (28.0-33.3); Mean Corpuscular Volume 96.1 fL (83.0-100.0); Mean Platelet Volume 9.8 fL (9.4-12.4); Monocytes # 0.6 K/mcL (0.0-1.3); Monocytes % 7.8 %; Neutrophils # 5.1 K/mcL (1.6-8.9); Platelet Count 354 K/mcL (140-400); Red Blood Count 2.85 M/mcL (3.82-4.97); Red Cell Distribution Width 16.2 % (11.5-14.5); Segmented Neutrophils % 72.2 %
[2021-06-23 07:34] LABS: Albumin 3.6 g/dL (3.5-5.7); Albumin/Globulin Ratio 1.6 (1.1-2.2); Bilirubin,Direct 0.1 mg/dL (0.0-0.2); Bilirubin,Indirect 0.3 mg/dL (0.0-1.0); Bilirubin,Total 0.4 mg/dL (0.3-1.0); Calcium 8.4 mg/dL (8.6-10.3); Globulin 2.3 g/dL (2.4-3.5); Potassium 5.2 mEq/L (3.5-5.1); Total Protein 5.9 g/dL (6.4-8.9)
[2021-06-23] MEDS ORDERED: Furosemide 40 MG/4 ML VIAL IVP ONE (07:56)
[2021-06-23] MEDS ORDERED: Mag Hydrox/Al Hydrox/Simeth 30 ML UDC PO PRN (09:56)
[2021-06-23] MEDS ORDERED: Ondansetron ODT 4 MG TAB.RAPDIS SL PRN (09:56)
[2021-06-23] MEDS ORDERED: Melatonin 3 MG TABLET PO PRN (09:56)
[2021-06-23] MEDS ORDERED: Naloxone 0.4 MG/ML INJ IVP PRN (09:56)
[2021-06-23] MEDS ORDERED: Benzonatate 100 MG CAPSULE PO PRN (10:01)
[2021-06-23 10:22] LABS: Magnesium 1.9 mg/dL (1.6-2.6); Phosphorous 2.9 mg/dL (2.7-4.5)
[2021-06-23 10:46] LABS: Troponin I 0.04 ng/mL (< 0.04)
[2021-06-23] MEDS: Sucralfate 1 GM TABLET PO SCH ×2 (12:15→16:20)
[2021-06-23] MEDS ORDERED: 0.9 % Sodium Chloride 250 ML IVC PRN (12:38)
[2021-06-23] MEDS ORDERED: 0.9 % Sodium Chloride 1,000 ML PRIME SCH (12:45)
[2021-06-23] MEDS ORDERED: *HR* Propofol 200 MG/20 ML VIAL IVP ONE (14:55)
[2021-06-23] MEDS ORDERED: Lidocaine -MPF 2% 5 ML VIAL ONE (14:55)
[2021-06-23] MEDS ORDERED: *HR* Succinylcholine 200 MG/10 ML VIAL IVP ONE (14:55)
[2021-06-23] MEDS: *HR* Labetalol 20 MG/4 ML SYRINGE IVP ONE ×2 (15:27→15:30)
[2021-06-23] MEDS: carvediloL 25 MG TABLET PO SCH (16:20)
[2021-06-23] MEDS ORDERED: Ondansetron 4 MG/2 ML VIAL IVP ONE (18:23)
[2021-06-23 21:19] LABS: % Iron Saturation 6 % (15-50); Iron 19 mcg/dL (50-170); Transferrin 216 mg/dL (203-362)
[2021-06-23 21:20] LABS: Complement C3 142 mg/dL (87-200)
[2021-06-23 21:36] LABS: Ferritin 995 ng/mL (10-120)
[2021-06-24] MEDS: Piperacillin/Tazobactam 3.375 GM in 0.9 % Sodium Chloride Mini Bag 100 ML IVPB SCH ×3 (00:30→20:25)
[2021-06-24 00:54] LABS: Hematocrit 28.7 % (35.3-44.9); Mean Corpuscular HGB Conc 31.4 g/dL (31.6-35.5); Mean Corpuscular Hemoglobin 29.3 pg (28.0-33.3); Mean Corpuscular Volume 93.5 fL (83.0-100.0); Mean Platelet Volume 9.6 fL (9.4-12.4); Platelet Count 291 K/mcL (140-400); Red Blood Count 3.07 M/mcL (3.82-4.97); Red Cell Distribution Width 15.9 % (11.5-14.5)
[2021-06-24 01:02] LABS: INR 1.2; Prothrombin Time 13.3 Seconds (9.4-12.1)
[2021-06-24 01:18] LABS: Calcium 8.9 mg/dL (8.6-10.3); Potassium 4.9 mEq/L (3.5-5.1)
[2021-06-24] MEDS: Doxycycline 100 MG in 0.9 % Sodium Chloride Mini Bag 100 ML IVPB SCH ×2 (06:38→16:22)
[2021-06-24] MEDS: Sucralfate 1 GM TABLET PO SCH ×3 (07:43→16:22)
[2021-06-24] MEDS ORDERED: 0.9 % Sodium Chloride 250 ML IVC PRN ×3 (07:43→07:49)
[2021-06-24] MEDS: carvediloL 25 MG TABLET PO SCH ×2 (07:43→16:23)
[2021-06-24] MEDS ORDERED: predniSONE 5 MG TABLET PO SCH (09:00)
[2021-06-24] MEDS ORDERED: Sulfamethoxazole/Trimeth SS 1 TAB PO SCH (09:00)
[2021-06-24] MEDS ORDERED: Ondansetron 4 MG/2 ML VIAL IVP STA (11:06)
[2021-06-24] MEDS ORDERED: *HR* Propofol 200 MG/20 ML VIAL IVP ONE (11:10)
[2021-06-24] MEDS ORDERED: Lidocaine HCL 4 ML Topical Solution (Laryng-O-Jet Kit Sterile Pak) TP ONE (11:14)
[2021-06-24] MEDS ORDERED: Ondansetron 4 MG/2 ML VIAL ONE (11:14)
[2021-06-24] MEDS ORDERED: Lidocaine -MPF 2% 5 ML VIAL ONE (11:14)
[2021-06-24] MEDS ORDERED: *HR* Rocuronium Bromide 50 MG/5 ML VIAL ONE (13:49)
[2021-06-24] MEDS ORDERED: *HR* Succinylcholine 200 MG/10 ML VIAL IVP ONE (13:49)
[2021-06-24] MEDS ORDERED: *HR* FentaNYL (PF) 100 MCG/2 ML VIAL ONE (13:50)
[2021-06-24] MEDS: predniSONE 20 MG TABLET PO SCH (16:22)
[2021-06-24 17:09] LABS: Appearance of Body Fluid Slightly Hazy (Clear); Volume of Body Fluid 20 mL
[2021-06-24 17:55] LABS: Appearance of Body Fluid Clear (Clear); Volume of Body Fluid 35 mL
[2021-06-24 18:35] LABS: Hepatitis B Surface Antibody < 3.10 mIU/mL
[2021-06-24 18:46] LABS: Hepatitis B Surface Antigen Nonreactive (Nonreactive)
[2021-06-25] MEDS: Doxycycline 100 MG in 0.9 % Sodium Chloride Mini Bag 100 ML IVPB SCH (05:31)
[2021-06-25 05:44] LABS: Hematocrit 25.8 % (35.3-44.9); Immature Granulocytes % 0.7 % (0-4); Lymphocytes # 0.4 K/mcL (0.6-4.6); Lymphocytes % 4.1 %; Mean Corpuscular Hemoglobin 28.6 pg (28.0-33.3); Mean Corpuscular Volume 92.1 fL (83.0-100.0); Mean Platelet Volume 9.7 fL (9.4-12.4); Monocytes # 0.4 K/mcL (0.0-1.3); Monocytes % 3.8 %; Neutrophils # 9.1 K/mcL (1.6-8.9); Platelet Count 269 K/mcL (140-400); Red Cell Distribution Width 15.6 % (11.5-14.5); Segmented Neutrophils % 91.4 %
[2021-06-25 06:21] LABS: Calcium 7.9 mg/dL (8.6-10.3); Potassium 5.2 mEq/L (3.5-5.1); Thyroid Stimulating Hormone 0.962 mcIU/mL (0.340-5.600)
[2021-06-25] MEDS: Piperacillin/Tazobactam 3.375 GM in 0.9 % Sodium Chloride Mini Bag 100 ML IVPB SCH (07:29)
[2021-06-25] MEDS: predniSONE 20 MG TABLET PO SCH ×2 (07:30→16:17)
[2021-06-25] MEDS: Sucralfate 1 GM TABLET PO SCH ×3 (07:30→16:17)
[2021-06-25] MEDS: carvediloL 25 MG TABLET PO SCH ×2 (07:30→16:17)
[2021-06-25] MEDS ORDERED: 0.9 % Sodium Chloride 250 ML IVC PRN (08:22)
[2021-06-25] MEDS: Doxycycline 100 MG CAPSULE PO SCH (19:46)
[2021-06-25] MEDS ORDERED: Amoxicillin/Clavulanate 500 MG TABLET PO SCH (20:00)
[2021-06-26 06:21] LABS: Basophils % 0.1 %; Hematocrit 26.2 % (35.3-44.9); Hemoglobin 8.3 g/dL (11.5-15.4); Immature Granulocytes % 0.8 % (0-4); Lymphocytes # 0.7 K/mcL (0.6-4.6); Lymphocytes % 6.2 %; Mean Corpuscular HGB Conc 31.7 g/dL (31.6-35.5); Mean Corpuscular Hemoglobin 29.4 pg (28.0-33.3); Mean Corpuscular Volume 92.9 fL (83.0-100.0); Mean Platelet Volume 9.7 fL (9.4-12.4); Monocytes # 0.7 K/mcL (0.0-1.3); Monocytes % 6.9 %; Platelet Count 307 K/mcL (140-400); Red Blood Count 2.82 M/mcL (3.82-4.97); Red Cell Distribution Width 15.6 % (11.5-14.5); White Blood Count 10.5 K/mcL (4.3-11.1)
[2021-06-26 06:34] LABS: Calcium 7.8 mg/dL (8.6-10.3); Magnesium 1.9 mg/dL (1.6-2.6); Potassium 3.9 mEq/L (3.5-5.1)
[2021-06-26 06:44] VITALS: BP 145/77; PULSE 85; TEMP 98.5; O2SAT 98
[2021-06-26] MEDS: predniSONE 20 MG TABLET PO SCH (07:56)
[2021-06-26] MEDS: Doxycycline 100 MG CAPSULE PO SCH (07:57)
[2021-06-26] MEDS: carvediloL 25 MG TABLET PO SCH (07:57)
[2021-06-26] MEDS: Sucralfate 1 GM TABLET PO SCH (07:58)
[2021-06-26] MEDS ORDERED: Sulfamethoxazole/Trimeth SS 1 TAB PO SCH (17:00)
== END 2021-06-26 09:58 | disposition home health service (06) | DRG 291 ==
LOC: SUPCPDRO → 2ANU 04:38 → EMEROOARM 04:38 → SUATTDRO 10:24 → 2ANU 11:50
PROVIDERS: ADMIT Family Medicine; ATTEND Pharmacist

== ENCOUNTER 2021-08-12 06:40 | Observation (INO) ==
[2021-08-12 08:37] LABS: Basophils % 0.2 %; Hematocrit 40.8 % (35.3-44.9); Hemoglobin 13.4 g/dL (11.5-15.4); Immature Granulocytes % 0.3 % (0-4); Lymphocytes # 0.9 K/mcL (0.6-4.6); Lymphocytes % 15.6 %; Mean Corpuscular HGB Conc 32.8 g/dL (31.6-35.5); Mean Corpuscular Hemoglobin 29.9 pg (28.0-33.3); Mean Corpuscular Volume 91.1 fL (83.0-100.0); Mean Platelet Volume 8.9 fL (9.4-12.4); Monocytes # 0.6 K/mcL (0.0-1.3); Monocytes % 10.6 %; Neutrophils # 4.4 K/mcL (1.6-8.9); Platelet Count 284 K/mcL (140-400); Red Blood Count 4.48 M/mcL (3.82-4.97); Red Cell Distribution Width 15.3 % (11.5-14.5); Segmented Neutrophils % 73.3 %
[2021-08-12 08:56] LABS: Prothrombin Time 11.3 Seconds (9.4-12.1)
[2021-08-12 08:57] LABS: Albumin 4.1 g/dL (3.5-5.7); Albumin/Globulin Ratio 1.7 (1.1-2.2); Bilirubin,Indirect 0.3 mg/dL (0.0-1.0); Bilirubin,Total 0.3 mg/dL (0.3-1.0); Calcium 9.6 mg/dL (8.6-10.3); Globulin 2.4 g/dL (2.4-3.5); Magnesium 1.7 mg/dL (1.6-2.6); Phosphorous 4.8 mg/dL (2.7-4.5); Total Protein 6.5 g/dL (6.4-8.9)
[2021-08-12 08:59] LABS: Activated Partial Thrombo Time 34.6 Seconds (26.0-36.0)
[2021-08-12] MEDS ORDERED: 0.9 % Sodium Chloride 250 ML IVC PRN (13:20)
[2021-08-12] MEDS ORDERED: Ethyl Chloride Spray Bottle (104 SPRAY/BOTTLE) TP PRN (13:26)
[2021-08-12] MEDS ORDERED: 0.9 % Sodium Chloride 1,000 ML PRIME SCH (13:30)
[2021-08-12] MEDS: *HR* Heparin 5,000 UNIT/ML VIAL SQ SCH ×2 (13:42→20:58)
[2021-08-12 14:52] LABS: Hepatitis B Surface Antibody 3.17 mIU/mL
[2021-08-12 15:03] LABS: Hepatitis B Surface Antigen Nonreactive (Nonreactive)
[2021-08-12 16:08] LABS: Bacteria,Urine Few per hpf (None-Few); Bilirubin,Urine Negative (Negative); Blood,Urine Trace (Negative); Clarity,Urine Clear (Clear); Color,Urine Light-Yellow (Yellow); Glucose,Urine (UA) Normal (Normal); Ketones,Urine Negative (Negative); Leukocyte Esterase,Urine Small (Negative); Nitrite,Urine Negative (Negative); Protein,Urine >=300 mg/dL (Neg-Trace); Specific Gravity,Urine 1.014 (1.010-1.025); Squamous Epithelial Cell,Urine Moderate per hpf (None-Few); Urobilinogen,Urine Normal (Normal)
[2021-08-12] MEDS: Acetaminophen 325 MG TABLET PO PRN (17:24)
[2021-08-12] MEDS ORDERED: Ondansetron ODT 4 MG TAB.RAPDIS SL PRN (17:48)
[2021-08-12] MEDS ORDERED: Fluticasone Propionate Nasal 50 MCG/SPRAY BOTTLE NS PRN (17:48)
[2021-08-12] MEDS: valACYclovir 500 MG TABLET PO SCH (17:52)
[2021-08-12] MEDS ORDERED: Furosemide 40 MG TABLET PO SCH (18:00)
[2021-08-12] MEDS ORDERED: Sulfamethoxazole/Trimeth SS 1 TAB PO SCH (18:00)
[2021-08-12] MEDS: carvediloL 25 MG TABLET PO SCH (20:57)
[2021-08-13 02:19] LABS: Basophils % 0.6 %; Eosinophils # 0.3 K/mcL (0.0-0.6); Eosinophils % 5.1 %; Hematocrit 42.5 % (35.3-44.9); Immature Granulocytes % 0.4 % (0-4); Lymphocytes # 1.7 K/mcL (0.6-4.6); Lymphocytes % 32.5 %; Mean Corpuscular HGB Conc 32.9 g/dL (31.6-35.5); Mean Corpuscular Hemoglobin 30.2 pg (28.0-33.3); Mean Corpuscular Volume 91.6 fL (83.0-100.0); Monocytes # 0.8 K/mcL (0.0-1.3); Monocytes % 15.8 %; Neutrophils # 2.4 K/mcL (1.6-8.9); Platelet Count 287 K/mcL (140-400); Red Blood Count 4.64 M/mcL (3.82-4.97); Red Cell Distribution Width 15.1 % (11.5-14.5); Segmented Neutrophils % 45.6 %; White Blood Count 5.3 K/mcL (4.3-11.1)
[2021-08-13 02:34] LABS: Calcium 9.5 mg/dL (8.6-10.3); Potassium 3.7 mEq/L (3.5-5.1)
[2021-08-13] MEDS: *HR* Heparin 5,000 UNIT/ML VIAL SQ SCH ×3 (06:06→20:37)
[2021-08-13] MEDS ORDERED: 0.9 % Sodium Chloride 250 ML IVC PRN ×2 (07:35→08:27)
[2021-08-13] MEDS ORDERED: Sucralfate 1 GM TABLET PO SCH (08:00)
[2021-08-13] MEDS: carvediloL 25 MG TABLET PO SCH ×2 (09:14→17:22)
[2021-08-13] MEDS: Sucralfate 1 GM TABLET PO SCH ×2 (14:05→17:13)
[2021-08-13] MEDS: Ondansetron ODT 4 MG TAB.RAPDIS SL SCH (17:13)
[2021-08-13] MEDS: valACYclovir 500 MG TABLET PO SCH (17:13)
[2021-08-14 01:15] LABS: Hematocrit 45.9 % (35.3-44.9); Hemoglobin 14.8 g/dL (11.5-15.4); Mean Corpuscular HGB Conc 32.2 g/dL (31.6-35.5); Mean Corpuscular Hemoglobin 30.2 pg (28.0-33.3); Mean Corpuscular Volume 93.7 fL (83.0-100.0); Platelet Count 276 K/mcL (140-400); Red Cell Distribution Width 15.4 % (11.5-14.5); White Blood Count 5.2 K/mcL (4.3-11.1)
[2021-08-14 01:39] LABS: Calcium 9.3 mg/dL (8.6-10.3); Potassium 3.9 mEq/L (3.5-5.1)
[2021-08-14 01:48] LABS: Thyroid Stimulating Hormone 8.155 mcIU/mL (0.340-5.600)
[2021-08-14 02:07] LABS: Eosinophils # 0.1 K/mcL (0.0-0.6); Lymphocytes # 2.6 K/mcL (0.6-4.6); Monocytes # 0.2 K/mcL (0.0-1.3); Neutrophils # 2.3 K/mcL (1.6-8.9); Platelet Estimate Normal (Normal)
[2021-08-14] MEDS: *HR* Heparin 5,000 UNIT/ML VIAL SQ SCH (06:02)
[2021-08-14] MEDS: Acetaminophen 325 MG TABLET PO PRN (06:02)
[2021-08-14] MEDS ORDERED: predniSONE 5 MG TABLET PO SCH (09:00)
[2021-08-14] MEDS: Ondansetron ODT 4 MG TAB.RAPDIS SL SCH (09:45)
[2021-08-14] MEDS: Sucralfate 1 GM TABLET PO SCH ×2 (09:46→11:48)
[2021-08-14] MEDS: carvediloL 25 MG TABLET PO SCH (09:46)
[2021-08-14 10:47] VITALS: TEMP 98
[2021-08-14 11:19] VITALS: BP 122/69; PULSE 89; O2SAT 99
== END 2021-08-14 13:10 | disposition home or self-care (01) ==
LOC: 2ANU 06:40 → EMEROOARM 06:40 → SUATTDRO 09:45 → 2ANU 10:31
PROVIDERS: ADMIT Internal Medicine; ATTEND Pharmacist